=== PATIENT | female | born 1940 | race African-American/Black ===

== ENCOUNTER 2019-07-08 04:24 | Emergency (ER) | payer BC, MEDICARE ==
[~2019-07-08] VITALS: Ht 170.2 cm; Wt 83.0 kg
[~2019-07-08 04:24] MED LIST: BACL-141 PO; GABA-531 PO; MYRBETRIQ PO; PRAV20TA57 PO; VERA240C2 PO
[2019-07-08 04:35] VITALS: BP 172/91
[2019-07-08] MEDS ORDERED: ACETAMINOPHEN 325MG TABLET PO ONE (05:00)
[2019-07-08] MEDS ORDERED: TRAMADOL 50MG TABLET PO ONE (05:30)
== END 2019-07-08 05:28 | disposition home or self-care (01) ==
LOC: ER 04:24
DX: M13.831 Other specified arthritis, right wrist (principal)
CPT/HCPCS: 99282

== ENCOUNTER 2022-10-25 15:13 | Emergency (ER) | payer BC ==
[~2022-10-25] VITALS: Ht 154.9 cm; Wt 87.0 kg
[~2022-10-25 15:13] MED LIST changes: -GABA-531 PO; +GABA-532 PO
[2022-10-25 15:21] VITALS: BP 163/71; PULSE 70; RESP 16; TEMP 98.8; O2SAT 98
[2022-10-25] MEDS ORDERED: ACETAMINOPHEN 325MG TABLET PO ONE (17:30)
[2022-10-25 18:06] LABS: BASOPHILS % 0.3 % (0.0-2.0); EOSINOPHILS % 3.6 % (0.0-5.0); HEMATOCRIT. 35.3 % (36.0-48.0); HEMOGLOBIN. 11.6 g/dL (12.0-16.0); MEAN CORPUSCULAR HEMOGLOBIN 30.9 pg (28.0-32.0); MEAN CORPUSCULAR HGB CONC 32.9 g/dL (31.0-37.0); MEAN CORPUSCULAR VOLUME 93.9 fL (81.0-99.0); MEAN PLATELET VOLUME 8.1 fl (7.4-10.4); MONOCYTES % 4.6 % (2.0-8.0); NEUTROPHILS % 50.5 % (40.0-76.0); PLATELET 171 x1000/uL (130-400); RED BLOOD CELL COUNT 3.77 mill/uL (4.2-5.4); WHITE BLOOD COUNT 3.6 x1000/uL (4.5-11.0)
[2022-10-25 18:15] LABS: CHLORIDE 108 mEq/L (98-107); INDEX HEMOLYSI 1 (1-3); INDEX ICTERIC 1 (1-4); INDEX LIPEMIC 1 (1-3); POTASSIUM 4.1 mEq/L (3.5-5.1); SODIUM 139 mEq/L (136-145)
[2022-10-25 18:27] LABS: ALANINE AMINOTRANSFERASE 20 IU/L (13-61); ALBUMIN 3.8 g/dL (3.4-5.0); BILIRUBIN TOTAL 0.6 mg/dL (0.1-1.0); CALCIUM 9.3 mg/dL (8.5-10.1); CARBON DIOXIDE 29 mEq/L (21-32); GLUCOSE 98 mg/dL (70-105); PROTEIN TOTAL 7.2 g/dL (6.0-8.3); UREA NITROGEN BLOOD 28 mg/dL (7-21)
[2022-10-25 18:30] LABS: ASPARTATE AMINOTRANSFERASE 17 IU/L (15-37)
[2022-10-25 20:52] LABS: CLARITY URINE CLOUDY (CLEAR); COLOR URINE YELLOW (YELLOW); GLUCOSE URINE NEGATIVE (NEGATIVE); KETONES URINE NEGATIVE (NEGATIVE); LEUKOCYTE ESTERASE URINE TRACE (NEGATIVE); NITRITE URINE NEGATIVE (NEGATIVE); OCCULT BLOOD URINE NEGATIVE (NEGATIVE); PROTEIN URINE NEGATIVE (NEGATIVE); SPECIFIC GRAVITY URINE 1.019 (1.005-1.030); UROBILINOGEN URINE 0.2 E.U./dL (0.2-1.0)
[2022-10-25 21:13] LABS: BACTERIA URINE 3+; SQUAMOUS EPITHELIAL CELL URINE 1+ /lpf (RARE/1+)
[2022-10-25 21:14] LABS: RBC URINE 0-2 /hpf (0-2); WBC URINE 0-2 /hpf (0-2)
== END 2022-10-25 21:39 | disposition left against medical advice (07) ==
LOC: ER 16:24
DX: M54.50 Low back pain, unspecified (principal); I10 Essential (primary) hypertension; E78.00 Pure hypercholesterolemia, unspecified
CPT/HCPCS: 36415; 74176; 80053; 81003; 85025; 99284